=== PATIENT | female | born 1955 | race Two or more races ===

== ENCOUNTER 2022-09-13 12:55 | Emergency (ER) | payer OTHER, MEDICAID ==
[~2022-09-13] VITALS: Ht 172.7 cm; Wt 72.0 kg
[2022-09-13 13:29] LABS: Basophils # (auto) 0.1 10 ^3/uL (0-0.2); Basophils % (auto) 0.8 % (0.0-2.0); Eosinophils # (auto) 0.2 10 ^3/uL (0-0.8); Eosinophils % (auto) 3.6 % (0.0-7.0); Hematocrit 44.4 % (36.0-46.0); Lymphocytes # (auto) 1.7 10 ^3/uL (0.4-5.4); Mean Corpuscular Hgb Conc. 33.8 g/dL (32.0-36.0); Mean Corpuscular Volume 97.7 fL (80.0-100.0); Monocytes # (auto) 0.8 10 ^3/uL (0-1.3); Monocytes % (auto) 11.3 % (0.0-12.0); Neutrophils # (auto) 3.9 10 ^3/uL (1.6-8.6); Neutrophils % (auto) 59.3 % (37.0-80.0); Nucleated Red Blood Cells % 0.1 %; Red Blood Cells 4.54 10^6/uL (4.0-5.20); Red Cell Distribution Width 14.7 % (11.8-14.3); White Blood Cell 6.6 10^3/uL (4.4-10.8)
[2022-09-13 13:49] LABS: Albumin 3.7 g/dL (3.4-5.0); Calcium 8.5 mg/dL (8.5-10.1); Potassium 3.6 mmol/L (3.5-5.1)
[2022-09-13 13:52] LABS: BUN/Creatinine Ratio 9.2 (10.0-20.0); Bilirubin, Total 0.5 mg/dL (0.2-1.0); Total Protein 8.1 g/dL (6.4-8.2)
[2022-09-13] MEDS ORDERED: LEVO-28 PO (16:34)
[2022-09-13] MEDS ORDERED: PRED20TA2 PO (16:34)
[2022-09-13] MEDS ORDERED: cefTRIAXone W LIDOCAINE 1 GM IM IM ONE (16:45)
[2022-09-13 18:17] VITALS: BP 160/55
== END 2022-09-13 18:18 | disposition home or self-care (01) ==
LOC: ER 12:55
DX: J06.9 Acute upper respiratory infection, unspecified (principal); I48.91 Unspecified atrial fibrillation
CPT/HCPCS: 36415; 71045; 80053; 84484; 85025; 85379; 93005; 96372; 99285; J0696